=== PATIENT | female | born 1965 | race Caucasian/White ===

== ENCOUNTER 2023-11-14 18:47 | Outpatient (CLI) | payer BC, SELFPAY ==
--- NOTE | 2023-11-14 19:00 | CRLHL7_ITS ---
For Patients: As a result of the Cures Act, medical imaging exams and procedure reports are released immediately into your electronic medical record. You may view this report before your referring provider. If you have questions, please contact your health care provider. BILATERAL SCREENING MAMMOGRAM WITH COMPUTER-AIDED DETECTION AND TOMOSYNTHESIS TECHNIQUE: CC and MLO views were obtained. These mammographic images have been obtained using full-field digital technique. These mammographic images were interpreted with the benefit of computer-aided detection. Breast Tomosynthesis was used in this interpretation. COMPARISON FILM: 08/23/22, 06/29/21, 02/05/19. FINDINGS: There are scattered areas of fibroglandular density IMPRESSION: There is no radiographic evidence for malignancy. ASSESSMENT: BI-RADS Category 1: Negative RECOMMENDATION: Routine screening mammogram in 1 year. A lay language report of this examination will be provided to the patient. Baltazar Bautista M.D. Diagnostic Radiologist [email or web address] Transcribed: 3:42 [email or web address] drew/Dictated by: Baltazar Bautista MD @ 11/15/2023 10:34:00 AM (Electronically Signed)
== END 2023-11-14 18:48 | disposition home or self-care (01) ==
PROVIDERS: PCP Family Medicine; Visit Provider Family Medicine
DX: Z12.31 Encounter for screening mammogram for malignant neoplasm of breast (principal)
CPT/HCPCS: 77063; 77067

== ENCOUNTER 2024-12-10 15:28 | Outpatient (CLI) | payer BC, SELFPAY ==
--- NOTE | 2024-12-10 15:40 | CRLHL7_ITS ---
For Patients: As a result of the Century Cures Act, medical imaging exams and procedure reports are released immediately into your electronic medical record. You may view this report before your referring provider. If you have questions, please contact your health care provider. INDICATION: BILATERAL SCREENING MAMMOGRAM, ASYMPTOMATIC 59 Y/O FEMALE COMPARISON: 11/14/2023, 08/23/2022, 06/29/2021 TECHNIQUE: Digital mammogram in CC and MLO projections including computer-aided detection (CAD) and tomosynthesis. BREAST COMPOSITION: There are scattered areas of fibroglandular density. FINDINGS: No suspicious findings. ASSESSMENT: BI-RADS 1 Negative RECOMMENDATION: Annual screening mammogram. A lay language report of this examination will be provided to the patient. Dictated by: Christin Phelps MD @ 12/11/2024 13:09:25 (Electronically Signed)
== END 2024-12-10 15:29 | disposition home or self-care (01) ==
LOC: MAMMO 15:28
PROVIDERS: PCP Family Medicine; Visit Provider Family Medicine
DX: Z12.31 Encounter for screening mammogram for malignant neoplasm of breast (principal)
CPT/HCPCS: 77063; 77067

== ENCOUNTER 2025-03-09 08:47 | Outpatient (CLI) | payer BC, SELFPAY | END 2025-03-09 08:48 | disposition home or self-care (01) | LOC: AMB 03-12 14:44 | PROVIDERS: PCP Family Medicine; Visit Provider Internal Medicine | DX: S99.911A Unspecified injury of right ankle, initial encounter (principal); W10.9XXA Fall (on) (from) unspecified stairs and steps, initial encounter; Y92.019 Unspecified place in single-family (private) house as the place of occurrence of the external cause | CPT/HCPCS: A0425; A0433 ==

== ENCOUNTER 2025-03-09 09:25 | Emergency (ER) | payer BC, SELFPAY ==
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
[2025-03-09] VITALS (23 sets, daily range): BP systolic 98–128; BP diastolic 57–85; PULSE 67–80; RESP 7–18; TEMP 36.6; O2SAT 87–99; BMI 26.6
--- OUTSIDE RECORDS SUMMARY | 2025-03-09 09:26 | XMS_ITS | Clinical Summary ---
Author Organization [facility] Address [address] [place] [address] Care Team Providers Care Military Cook Name Role Phone Tameka Haskins MD Primary Care Provide r Allergies Active AllergyReactionsCriticalityNoted DateCommentsCodeineNausea Only11/03/2016 Medications MedicationSigDispense QuantityRefillsLast FilledStart DateEnd DateStatus magnesium citrate 125 mg cap Indications:Adjustment reaction with anxiety and depressionTake 400 mg by mouth once daily.ctive cyanocobalamin (Vitamin B-12) 1,000 mcg tablet Take 1 Tablet (1,000 mcg) by mouth once daily. 3 times per week 90 Tablet ctive cholecalciferol (Vitamin D) 1,000 unit capsule Take 1 Capsule (1,000 units) by mouth once daily.ctive clobetasol (TEMOVATE) 0.05 % ointment Indications:Lichen sclerosusApply topically to affected area(s) two times daily. 45 g 309ctive clotrimazole-betamethasone 1%-0.05% cream Indications:IntertrigoApply topically to affected area(s) two times daily. 45 g ctive crisaborole (Eucrisa) 2 % oint Indications:Acute eczemaApply topically to affected area(s) two times daily. 100 g 109ctive hydrocortisone 2.5 % cream Indications:Chronic eczemaApply topically to affected area(s) two times daily. Apply to eczema twice daily for 2-3 weeks 28 g 4Active citalopram (CELEXA) 40 mg tablet Indications:Adjustment reaction with anxiety and depressionTake 1 Tablet (40 mg) by mouth once daily in the morning. 90 Tablet 5Active polyethylene glycol-electrolyte (GOLYTELY) 236-22.74-6.74 -5.86 gram suspension Indications:Encounter for screening colonoscopyDrink 2 liters (half the bottle) the day before colonoscopy and 2 liters (remaining prep) 6 hours prior to colonoscopy appointment. 4000 mL 5Active citalopram 40 mg tablet Indications:Adjustment reaction with anxiety and depressionTake 1 Tablet (40 mg) by mouth once daily in the morning. 90 Tablet Discontinued(Reorder (E-cancel not sent)) Active Problems ProblemNoted DateDiagnosed DatePap smear for cervical cancer xavrvvtzm28/01/2022 Overview (11/12/2021): 08/2021: NIL/HPV neg (16/18 neg). Plan: Pap and HPV in 5 years. 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 Scanner 1 scan: (1-Ord) ZAYDA, HUSSAIN SCREENING MARILYN BI, 12/10/2024from Last 3 Months Immunizations ImmunizationAdministration DatesNext DueAMB INFLUENZA, IIV4 (AGE=>6MOS) MDV (Flu Clinic Only)12/26/2017AMB Influenza, IIV3 (Age >=3 years)(Flu Clinic Only) 02/11/2011,02/12/2010,02/15/2008MB Influenza, IIV4 PF (=>6 mos Flulaval,Fluzone Fluarix)(Flu Clinic Only)02/14/2014COVID-19 VACCINE SPIKEVAX (MODERNA 50MCG/0.5ML) 12YO+ PFS02/14/2025,09/05/2024,02/08/2023INFLUENZA, IIV3 PF (AGE >= 6 MO)02/14/2025,12/22/2023Influenza RIV4 (Age 18+ Years) PRESERV FREE11/07/2019 Influenza Virus, Cnwbdksyzee38/27/2016,02/15/2008,01/05/2007,02/01/2006, 02/26/2003Influenza, IIV3 (Age 6-35 mos)02/11/2011Influenza, IIV3 (Age >=3 years)03/05/2013,02/10/2012,02/12/2010,02/15/2008,01/05/2007,02/01/2006, 02/26/2003Influenza, PKS87104/10/2022,01/07/2021,03/17/2017,01/14/2016,02/14/2014 Influenza, IIV4 (=>6mos) MDV104/16/2021,03/07/2019Td (Age >=7 Years)08/05/2003Td, Preservative Free (age >= 7 Years)10/22/2002Tdap10/04/2022,11/02/2012Zoster (Asagrix-RZV, recombinant)02/21/2020,11/07/2019 Family History Medical HistoryRelationNameCommentsPsychiatric illnessBrother 2AllergiesBrother 3Alcohol/DrugBrother 4Heart DiseaseFatherCHF, age 78CancerMaternal GrandfatherHeart DiseaseMaternal GrandmotherStrokeMaternal GrandmotherGood HealthMotherHeart DiseaseMotherAcute anterior wall MIPsychiatric illnessMother CancerPaternal GrandfatherHeart DiseasePaternal GrandmotherStrokePaternal GrandmotherAllergiesSister 4AllergiesSister 5Good HealthSister 6Good Health Sister 7RelationNameStatusCommentsBrother 1AliveBrother 2Brother 3Brother 4 Daughter 1AliveDaughter 2AliveFatherAliveMaternal AuntAliveMaternal Grandfather AliveMaternal GrandmotherAliveMaternal UncleAliveMotherAlivePaternal Aunt (Age 38)Paternal GrandfatherDeceasedPaternal GrandmotherDeceased Paternal UncleDeceased (Age 22)kidney diseaseSister 1AliveSister 2AliveSister 3 AliveSister 4Sister 5Sister 6Sister 7SonAlive Social History Tobacco UseTypesPacks/DayYears UsedDateSmoking Tobacco: NeverSmokeless Tobacco: Never Tobacco Cessation:Counseling Given: Yes Alcohol UseStandard Drinks/WeekCommentsYes3 (1 standard drink = 0.6 oz pure alcohol)a glass a weekPHQ-2AnswerDate RecordedPHQ-2 TOTAL MJACX47504/16/2024Social ConnectionsAnswerDate RecordedDo you often feel lonely or isolated from those around you?lcohol UseAnswerDate RecordedHow often do you have a drink containing alcohol?How many drinks containing alcohol do you have on a typical day when you are drinking?How often do you have five or more drinks on one occasion?Financial Resource StrainAnswer Date RecordedDifficulty of Paying Living Fasaalxh613/19/2025Difficulty of Paying Living ExpensesNot on file09/05/2024Food InsecurityAnswerDate RecordedDo you worry your food will run out before you are able to buy more? Transportation NeedsAnswerDate RecordedDoes lack of transportation keep you from medical appointments?Does lack of transportation keep you from work, meetings or getting things that you need?Housing StabilityAnswerDate RecordedWhat is your housing situation today?UtilitiesAnswerDate RecordedDo you have trouble paying for utilities (for example, heat, electricity, water, phone)?CommentsNoSex and Gender InformationValueDate RecordedSex Assigned at GjsnvDncuuy38/01/2021 6:34 PM CDT Legal XkiQnmyqa88/14/2013 6:22 AM CSTGender AmdekzrzJzafgn07/01/2021 6:34 PM CDT Sexual TegprrgkjdqXlamvrby08/01/2021 6:34 PM CDT Obstetrics History GravidaParaTermPretermABIABSABEctopicMultipleLivingLive Rgmaho455172LbsrJiveutd GATotal LaborLabor/2nd/8nvPftejaBbcOrvgGzcmFJAHgdA1L8IfjrRinoKCYScaoRxcrQekb Last Filed Vital Signs Vital SignReadingTime TakenCommentsBlood Xolwwahh245/7402/14/2025 10:07 AM [employer]ESPERSON WOMEN'S DRESSES Cyinv774102/14/2025 10:07 AM KSDFarzfvhkxbp57.6 ??C (97.9 ??F)03/03/2020 7:30 AM CSTRespiratory Nghv7762 3:59 PM CDTOxygen Sojtqddens17%02/14/2025 10:07 AM CSTInhaled Oxygen Concentration--Eecdqa44.4 kg (166 lb 4.8 oz)02/14/2025 10:07 AM XDSZnvqqa101.2 cm (5' 7)02/14/2025 10:07 AM CSTBody Mass Index26.05 02/14/2025 10:07 AM [employer]ESPERSON WOMEN'S [employer]ESS[employer] Plan of Treatment DateTypeDepartmentCare Team (Latest Contact Info)Fbslfuzkqef20/22/2025 11:00 AM CSTNurse/Clinic Staff Only [facility] [address] [place] [address] 06/13/2025 6:30 AM CDTOffice Visit [facility] [address] [facility] [place] [phone] Tl Crum MD [address] [place] [address] Health MaintenanceDue DateLast DoneCommentsHepatitis B series for 19+ (1 of 3 - 19+ 3-dose series)07/04/1986Pneumococcal series for age 50+ (1 of 1 - PCV) 07/04/2017Colonoscopy through age 750, 10/10/2017, 10/10/2017 Fecal testing sDNA-FIT (Cologuard) for age 45-7Mammogram for age 45-/, 11/14/2023, 08/23/2022, Additional history existsBMI (ht and wt on same day) for age 18+, 11/28/2023, 09/16/2022, Additional history existsDepression screening for age 12+02/14/2026 02/14/2025, 11/28/2023, 09/16/2022, Additional history existsPap test for age 21-, 09/07/2021, 01/03/2019, Additional history exists Lipids for age 45-7511/, 02/28/2023, 09/07/2021, Additional history existsTetanus , 11/02/2012, 10/22/2002, Additional history existsRSV vaccine for adults or (1 - 1-dose 75+ series)07/04/2042Zoster (shingles) series for age 50+Qnuiyxhtt54/04/2020, 11/07/2019HIV for age 15-39Dlpipxbsm44/21/2022Hepatitis C screening for age 18-69Zlpnkqytq97/21/2022COVID-19 vaccine edecowFyhugklwg22/28/2025, 09/05/2024, 12/22/2023, Additional history existsInfluenza NrtepokHkssmcyqq56/28/2025, 12/22/2023, 02/08/2023, Additional history exists Procedures Procedure NamePriorityDate/TimeAssociated DiagnosisCommentsVITAMIN B14Vfrlgjy 02/14/2025 11:27 AM [employer]ERSON [employer]OMEN[employer] B12 deficiency TSH WITH HHWJXTTrozefs65/28/2025 11:27 AM SALESPERSON WOMEN'S DRESSES Hot flashes LIPID PANEL W REFLEX MEASURED XOFZtoydtd40/28/2025 11:27 AM SALESPERSON WOMEN'S DRESSES Lipid screening SCAN-MAMMOGRAPHY KXXZGV3312/10/2024 12:00 AM CDT SDNA-FIT EXTERNAL (COLOGUARD)Hzfpejk5709/26/2022 5:35 PM CDT Screening for colon cancer ANTI HIV 1/3Ilgglqd35/21/2022 3:12 PM CDT Screen for STD (sexually transmitted disease) ANTI QCNSsmtfja57/21/2022 3:12 PM CDT Screen for STD (sexually transmitted disease) HPV HIGH XCIEMpkmnpq51/21/2022 2:00 PM CDT Cervical cancer screening YIHHTSDAWZJ81/24/2018 8:15 AM CDT from Last 3 Months or Most Recently Relevant to Health Maintenance Results * TSH WITH REFLEX (02/14/2025 11:27 AM SALESPERSON WOMEN'S DRESSES)ComponentValueRef RangeTest Method Analysis TimePerformed AtPathologist SignatureTSH W/REFLEX TO FT41.350.40 - 4.50 mIU/L104/17/2024 4:06 AM CSTQUEST DIAGNOSTICSSpecimen (Source)Anatomical Location / LateralityCollection Method / VolumeCollection TimeReceived Time BloodBLOOD SPECIMEN / UnknownQuest Collect / Wsldxbp8502/14/2025 11:27 AM [employer]ESPERSON WOMEN'S DRESSES 02/14/2025 11:27 AM SALESPERSON WOMEN'S DRESSES Narrative Authorizing ProviderResult TypeResult StatusTameka Paty Chapinhaylee MDCHEMISTRY Final ResultPerforming OrganizationAddressCity/State/ZIP CodePhone Number [facility] [address] [place] [address], * (ABNORMAL) LIPID PANEL W REFLEX MEASURED LDL (02/14/2025 11:27 AM SALESPERSON WOMEN'S DRESSES) ComponentValueRef RangeTest MethodAnalysis TimePerformed AtPathologist SignatureCHOLESTEROL, UGQCA286(H)<200 mg/dL02/15/2025 3:51 AM CSTQUEST XROKIIKLZHRKBITUNBODOVZM518<150 mg/dL02/15/2025 3:51 AM CSTQUEST DIAGNOSTICS HDL MQPWGZIPDUZ97> OR = 50 mg/dL02/15/2025 3:51 AM CSTQUEST DIAGNOSTICSNON HDL IGQQKPFGKJF055(H)<130 mg/dL (calc)02/15/2025 3:51 AM CSTQUEST DIAGNOSTICS Comment: For patients with diabetes plus 1 major ASCVD risk factor, treating to a non-HDL-C goal of <100 mg/dL (LDL-C of <70 mg/dL) is considered a therapeutic option. CHOL/HDLC RATIO4.4<5.0 (calc)02/15/2025 3:51 AM CSTQUEST DIAGNOSTICS LDL-XYNPDLQIWVF229(H)mg/dL (calc)02/15/2025 3:51 AM CSTQUEST DIAGNOSTICSComment: Reference range: <100 Desirable range <100 mg/dL for primary prevention; <70 mg/dL for patients with CHD or diabetic patients with > or = 2 CHD risk factors. LDL-C is now calculated using the Sindi calculation, which is a validated novel method providing better accuracy than the Friedewald equation in the estimation of LDL-C. Tl RICHARDSON et al. GERALD. 2013;310(19): 0966-9650 (http://education.[employer].Locate Special Diet/faq/JQW392) Specimen (Source)Anatomical Location / LateralityCollection Method / Volume Collection TimeReceived TimeBloodBLOOD SPECIMEN / UnknownQuest Collect / Unknown 02/14/2025 11:27 AM CST02/14/2025 11:27 AM SALESPERSON WOMEN'S DRESSES Narrative Authorizing ProviderResult TypeResult StatusTameka Haskins MDCHEMISTRY Final ResultPerforming OrganizationAddressCity/State/ZIP CodePhone Number [employer] [facility] [address] [place] [address], [place] [phone] * VITAMIN B12 (02/14/2025 11:27 AM SALESPERSON WOMEN'S DRESSES)ComponentValueRef RangeTest Method Analysis TimePerformed AtPathologist SignatureVITAMIN [id number] - 1100 pg/mL 02/15/2025 4:03 AM CSTQUEST DIAGNOSTICSSpecimen (Source)Anatomical Location / LateralityCollection Method / VolumeCollection TimeReceived TimeBloodBLOOD SPECIMEN / UnknownQuest Collect / Jftykip2002/14/2025 11:27 AM CST02/14/2025 11:27 AM SALESPERSON WOMEN'S DRESSES Narrative Authorizing ProviderResult TypeResult StatusTameka Haskins MDCHEMISTRY Final ResultPerforming OrganizationAddressCity/State/ZIP CodePhone Number [employer] [address] [address], [place] [phone] * SCAN-MAMMOGRAPHY REPORT (12/10/2024 12:00 AM CDT)Anatomical RegionLaterality ModalityOther Narrative Authorizing ProviderResult TypeResult StatusScannerOTHERFinal Result * SDNA-FIT EXTERNAL (COLOGUARD) (09/26/2022 5:35 PM CDT)ComponentValueRef Range Test MethodAnalysis TimePerformed AtPathologist SignatureNONINV COLON CA DNA+OCC BLD SCRN STL-SKOGojktajbDohpxqjf90/17/2023 4:39 PM CDTEXBoedo (CLIA #:[id number])Comment: NEGATIVE TEST RESULT. A negative Cologuard result indicates a low likelihood that a colorectal cancer (CRC) or advanced adenoma (adenomatous polyps with more advanced pre-malignant features) ??is present. The chance that a person with a negative Cologuard test has a colorectal cancer is less than 1in 1500 (negative predictive value >99.9%) or has an advanced adenoma is less than 5.3% (negative predictive value 94.7%). These data are based on a prospective cross-sectional study of 10,000individuals at average risk for colorectal cancer who were screened with both Cologuard and colonoscopy. (Cyrus Piper al, N Engl J Med 2014;370(14):1922-5124) The normal value (reference range) for this assay is negative. COLOGUARD RE-SCREENING RECOMMENDATION: Periodic colorectal cancer screening is an important part ofpreventive healthcare for asymptomatic individuals at average risk for colorectal cancer. ??Following a negative Cologuard result, the [employer] Society and U.S. Multi-Society Task Force screening guidelines recommend a Cologuard re-screening interval of 3 years. References: [employer] Guideline for Colorectal Cancer Screening: https://www.cancer.or g/cancer/oigxr-upkakn-gwhjcm/hwdeyyajy-sisldrnqa-snhacla/acs-recommendations.htm jason; Montrell MAYBERRY, Kyle LYNNE, Cory GeK, Colorectal Cancer Screening: Recommendations for Physicians and Patients from the U.S. Multi-Society Task Force on Colorectal Cancer Screening , Am J Gastroenterology 2017; 112:9502-3546. TEST DESCRIPTION: Composite algorithmic analysis of stool DNA-biomarkers with hemoglobin immunoassay. ?? Quantitative values of individual biomarkers are not reportable and are not associated with individual biomarker result reference ranges. Cologuard is intended for colorectal cancer screening ofadults of either sex, 45 years or older, who are at average-risk for colorectal cancer (CRC). Cologuard has been approved for use by the U.S. FDA. The performance of Cologuard was established in a cross sectional study of average-risk adults aged 50-84. Cologuard performance in patients ages 45 to 49 years was estimated by sub-group analysis of near-age groups. Colonoscopies performed for a positive result may find as the most clinically significant lesion: colorectal cancer [4.0%], advanced adenoma (including sessile serrated polyps greater than or equal to 1cm diameter) [20%] or non- advanced adenoma [31%]; or no colorectal neoplasia [45%]. These estimates are derived from a prospective cross-sectional screening study of 10,000 individuals at average risk for colorectal cancer who were screened with both Cologuard and colonoscopy. (Cyrus Piper al, N Engl J Med 2014;370(14):0844-9519.) Cologuard may produce a false negative or false positive result (no colorectal cancer or precancerous polyp present at colonoscopy follow up). A negative Cologuard test result does not guarantee the absence of CRC or advanced adenoma (pre-cancer). The current Cologuard screening interval is every 3 years. ([employer] [employer] and U.S. Multi-Society Task Force). Cologuard performance data in a 10,000 patient pivotal study using colonoscopy as the reference method can be accessed at the following location: www.[employer].Locate Special Diet/results. Additional description of the Cologuard test process, warnings and precautions can be found at www.cologuard.Locate Special Diet. Specimen (Source)Anatomical Location / LateralityCollection Method / Volume Collection TimeReceived TimeStool specimen (specimen) (Rectum)09/26/2022 5:35 PM CDT09/28/2022 5:38 PM CDT Narrative Authorizing ProviderResult TypeResult StatusTameka Haskins MDURINEFinal ResultPerforming OrganizationAddressCity/State/ZIP CodePhone Number [employer] (CLIA #:[id number]) [place] [address], * ANTI HCV (09/07/2021 3:12 PM CDT)ComponentValueRef RangeTest MethodAnalysis TimePerformed AtPathologist SignatureHEPATITIS C ANTIBODYNon-Reactive Non-Gsuyqckz04/22/2022 12:56 AM CD[facility] Comment:Antibodies to HCV not detected; does not exclude the possibility of exposure to HCV.Specimen (Source)Anatomical Location / LateralityCollection Method / VolumeCollection TimeReceived TimeBloodBLOOD SPECIMEN / Unknown Venipuncture / Kvsbuns4309/07/2021 3:12 PM CDT09/07/2021 3:12 PM CDT Narrative Authorizing ProviderResult TypeResult StatusTameka Haskins MDSEND OUTS Final ResultPerforming OrganizationAddressCity/State/ZIP CodePhone Number [facility] [address] [place] [address], [place] * ANTI HIV 1/2 (09/07/2021 3:12 PM CDT)ComponentValueRef RangeTest Method Analysis TimePerformed AtPathologist SignatureHIV-1/HIV-2 ANTIBODYNon-Reactive Non-Hcqoxrle98/22/2022 12:54 AM [facility] Comment:HIV-1 p24 and HIV-1/HIV-2 Ab not detected.Specimen (Source)Anatomical Location / LateralityCollection Method / VolumeCollection TimeReceived Time BloodBLOOD SPECIMEN / UnknownVenipuncture / Nakaxxm4209/07/2021 3:12 PM CDT 09/07/2021 3:12 PM CDT Narrative Authorizing ProviderResult TypeResult StatusTameka Haskins MDSEND OUTS Final ResultPerforming OrganizationAddressCity/State/ZIP CodePhone Number [facility] [address] [place] [address], * HPV HIGH RISK (09/07/2021 2:00 PM CDT)ComponentValueRef RangeTest Method Analysis TimePerformed AtPathologist SignatureTYPE 16NegativeNegative 09/09/2021 2:23 PM CD[facility]-CENTRAL LABORATORYTYPE 18 IhaeiaueOhzknfzz48/23/2022 2:23 PM [facility]OTHER HIGH RISK IKHWQKhjiglhqGhegaamw22/23/2022 2:23 PM [facility]ATORYSpecimen (Source)Anatomical Location / LateralityCollection Method / VolumeCollection TimeReceived TimeOther (Cervical)Non-Blood / Cfxspuc4809/07/2021 2:00 PM CDT09/08/2021 8:27 AM CDT Narrative [facility] - 09/09/2021 2:23 PM CDT HPV types 16, 18, 31, 33, 35, 39, 45, 51, 52, 56, 58, 59, 66 and 68 DNA were undetectable or below the pre-set threshold. Methodology: YesVideo Carie 4800 HPV Test Authorizing ProviderResult TypeResult StatusTameka Haskins MD MICROBIOLOGYFinal ResultPerforming OrganizationAddressCity/State/ZIP CodePhone Number [facility] [address] [place] [address], * COLONOSCOPY (10/10/2017 8:15 AM CDT)Specimen (Source)Anatomical Location / LateralityCollection Method / VolumeCollection TimeReceived Time10/10/2017 8:15 AM CDT Narrative Transcriptions Tl Crum MD - 10/10/2017 8:49 AM CDT Patient Name: Lesly Blevins Procedure Date: 10/10/2017 Gender: Female Date of : 1965 Admit Type: Outpatient Procedure: Colonoscopy Proceduralist: Tl Crum MD , Ciera Mina (Nurse) Indications/Pre-Op Diagnosis: Screening for colorectal malignant neoplasm, This is the patient's first colonoscopy Medications: Fentanyl 100 micrograms IV, Midazolam 2 mgIV, The level of sedation administered wasmoderate Procedure Description: The patient had risks, benefits and alternatives explained to andgave informed consent. The patient had a stable cardiopulmonary status and judged an adequate candidate for conscious sedation. The Colon CF-H180AL [id number] was passed through the anus and advancedto the cecum, identified by appendiceal orifice and ileocecal valve. The colonoscopy was performed without difficulty. The patient toleratedthe procedure well. The quality of the bowel preparation was good. The ileocecal valve, appendiceal orifice, and rectum were photographed. Complications: No immediate complications. Estimated Blood Loss & Specimen: Estimated blood loss: none. Specimen collected - Yes and sent to Laboratory Findings: The perianal and digital rectal examinations were normal. Two sessile polyps were found in the transverse colon. The polypswere 2 to 3 mm in size. These polyps were removed with a cold biopsyforceps. Resection and retrieval were complete. The exam was otherwise without abnormality on direct and retroflexion views. Impressions/Post-Op Diagnosis: - Two 2 to 3 mm polyps in the transverse colon, removed with a cold biopsy forceps. Resected and retrieved. - The examination was otherwise normal on direct and retroflexionviews. Recommendation: - Patient has a contact number available for emergencies. The signsand symptoms of potential delayed complications were discussed with the patient. Return to normal activities tomorrow. Written discharge instructions were provided to the patient. - Resume previous diet. - Continue present medications. - Repeat colonoscopy is recommended. The colonoscopy date will be determined after pathology results from today's exam become available for review. Moderate Sedation: Moderate (conscious) sedation was administered by the endoscopy nurse and supervised by the endoscopist. The following parameters were monitored: oxygen saturation, heart rate, respiratory rate, blood pressure, adequacy of pulmonary ventilation and reponse to care. Please refer to the [facility]' medical record flowsheets and nursing notes for moderate sedation details. Total physician intraservice time was 15 minutes. Tl Crum MD 10/10/2017 8:48:59 AM This report has been signed electronically. Note Initiated On: 10/10/2017 8:15 AM Procedure Code(s): --- Professional --- 20737, Colonoscopy, flexible; with biopsy, single or multiple Diagnosis Code(s): --- Professional --- Z12.11, Encounter for screening formalignant neoplasm of colon D12.3, Benign neoplasm of transverse colon (hepatic flexure or splenic flexure) CPT copyright 2017 [employer]. All rights reserved. The codes documented in this report are preliminary and upon tape maker reviewmay be revised to meet current compliance requirements. Scope In: 8:32:09 AM Scope Withdrawal Time 0 hours 8 minutes 35 seconds Scope Out: 8:44:31 AM Authorizing ProviderResult TypeResult StatusMarrobinson Crum MDPROCEDURE ORD Final Result from Last 3 Months or Most Recently Relevant to Health Maintenance Insurance * Guarantor: Lesly Blevins AAccount TypeRelation to PatientDate of BirthPhone Billing AddressPersonal/WmgmskYweq27/17/1966 [address] [place] [address] * Guarantor: Lesly Blevins AAccount TypeRelation to PatientDate of BirthPhone Billing YgqecdgRpvlgeWadz03/17/1966 [address] [place] [place] [phone] Care Teams Team MemberRelationshipSpecialtyStart DateEnd Tameka Haskins MD [address] [place] [address] PCP - GeneralFamily Jithzyjs78/6/14
--- OUTSIDE RECORDS SUMMARY | 2025-03-09 09:26 | XMS_ITS | Encounter Summary ---
Author Organization [facility] Address [address] [place] [address] Care Team Providers Care Learning And Development Consultant Name Role Phone Unavailable Primary Care Provider Unavailabl e Reason for Referral * Outpatient (Routine) - AuthorizedSpecialtyDiagnoses / ProceduresReferred By ContactReferred To ContactPlastic Surgery Isaiah Carlisle M.D., D.D.S. [address] [place] [address] Phone: tel: fax: [facility] Referral IDStatusReasonStart DateExpiration DateVisits RequestedVisits [id number]/18/20256/19/202711 Scheduling Instructions 6-12 week post op [address] Carlisle K JACK DEALER * Outpatient (Routine) - AuthorizedSpecialtyDiagnoses / ProceduresReferred By ContactReferred To ContactPlastic Surgery Isaiah Carlisle M.D., D.D.S. [address] [place] [address] Phone: tel: fax: [facility] Referral IDStatusReasonStart DateExpiration DateVisits RequestedVisits [id number]/18/20256/19/202711 Scheduling Instructions 2 week post op with Margie K JACK DEALER * Outpatient (Routine) - AuthorizedSpecialtyDiagnoses / ProceduresReferred By ContactReferred To ContactPlastic Surgery Isaiah Carlisle M.D., D.D.S. [address] [place] [address] Phone: tel: fax: [facility] Referral IDStatusReasonStart DateExpiration DateVisits RequestedVisits [id number]/18/20256/ Scheduling Instructions 1 week post op with [facility]Jessica K JACK DEALER Encounter Details DateTypeDepartmentCare Team (Latest Contact Info)Tljezbtwnat95/18/2025Orders Only Division of Plastic Surgery in [place], [place] [address] [place] [phone] Isaiah Carlisle M.D., D.D.S. [address] [place] [phone] Social History Tobacco UseTypesPacks/DayYears UsedDateSmoking Tobacco: NeverSmokeless Tobacco: NeverAlcohol UseStandard Drinks/WeekCommentsYes2 (1 standard drink = 0.6 oz pure alcohol)CommentsUnknownSex and Gender InformationValueDate RecordedSex Assigned at YlwixExhnkt51/25/2024 10:14 PM CSTLegal JihJjfdlb42/03/2017 9:09 AM CSTGender VwcudknsKzllqy71/25/2024 10:14 PM CSTSexual OrientationStraight 02/12/2024 10:14 PM CSTdocumented as of this encounter Plan of Treatment DateTypeDepartmentCare Team (Latest Contact Info)Rceieoyqmoj27/29/2025 7:22 AM CSTHospital Encounter Post Anesthesia Care Unit in [place], [place] [address] [place] [phone] Isaiah Carlisle M.D., D.D.S. [address] [place] [phone] 03/17/2025 7:22 AM BLACK JACK DEALER - 03/17/2025 12:05 PM CSTSurgery [facility] OR [address] [place] [phone] Isaiah Carlisle M.D., D.D.S. [address] [place] [phone] BROWLIFT gliding nqorphxq61/06/2026 2:30 PM CSTOffice Visit Division of Plastic Surgery in [place], [place] [address] [place] [phone] Jessica Espino APRN, C.N.P., D.N.P. [address] [place] [phone] 03/31/2025 2:00 PM CSTOffice Visit Division of Plastic Surgery in [place], [place] [address] [place] [phone] Jessica Espino APRN, C.N.P., D.N.P. [address] [place] [phone] NamePriorityAssociated DiagnosesDate/TimeBROWLIFT Defect Visual Field Peripheral Bilateral 03/17/2025 7:22 AM CSTBLEPHAROPLASTY LOWER LID Defect Visual Field Peripheral Bilateral 03/17/2025 7:22 AM CSTINJECTION FAT Defect Visual Field Peripheral Bilateral 03/17/2025 7:22 AM CSTNameTypePriorityAssociated DiagnosesOrder SchedulePlastic Surgery office visit (clinic)Outpatient ReferralRoutineExpected: 03/24/2025, Expires: 06/04/2026Plastic Surgery office visit (clinic)Outpatient Referral RoutineExpected: 03/31/2025, Expires: 06/04/2026Plastic Surgery office visit (clinic)Outpatient ReferralRoutineExpected: 05/12/2025 (Approximate), Expires: 06/04/2026documented as of this encounter Goals GoalPatient Goal TypeAssociated ProblemsRecent ProgressPatient-Stated?Author Autogenerated Goal Care PlanAutogenerated ProblemAnnette Cooper RWilmerNWilmerdocumented as of this encounter Visit Diagnoses Not on filedocumented in this encounter Additional Health Concerns Active ProblemsNoted DateDiagnosed DateAutogenerated Agvwsfj8303/06/2025documented as of this encounter
--- OUTSIDE RECORDS SUMMARY | 2025-03-09 09:26 | XMS_ITS | Patient Health Record ---
Author Organization [facility] Address [address] [facility] [address] [place], [place] [address] Care Team Providers Care Printed Circuit Photographer Name Role Phone Karina Rico Primary Care Provider [phone] Reason For Referral No Information Plan Of Treatment No Information Insurance Providers Payer Name Payer Address Payer Phone Subscriber Number Group Number Insured Name Patient Relationship to Insured Coverage Start Date Coverage End Date [facility] POS [address] [place] [address] [id number] Lesly Blevins Self - patient is the insured
--- OUTSIDE RECORDS SUMMARY | 2025-03-09 09:26 | XMS_ITS | Clinical Summary ---
Author Organization [facility] Address [address] [place] [address] Care Team Providers Care Tube Blower Name Role Phone Unavailable Primary Care Provider Unavailabl e Source Comments Patient records contain information from all sites at [facility]. For routine questions regarding patient records, call [phone] during business hours, M-F 8:00 AM - 5:00 PM Central Time. Record requests for emergency care only can be directed to [phone] at any time.[facility] Allergies Active AllergyReactionsCriticalityNoted DateCommentsCodeineNausea Only11/03/2016 Medications MedicationSigDispense QuantityRefillsLast FilledStart DateEnd DateStatus cholecalciferol (Vitamin D3) 25 mcg (1,000 Unit) capsule Take 1 capsule by mouth daily.09/16/2022ctive citalopram (CeleXA) 20 mg tablet Take 1 tablet by mouth daily.11/28/2023ctive clobetasoL (Temovate) 0.05 % ointment Apply topically 2 (two) times a day.11/28/2023ctive clotrimazole-betamethasone (Lotrisone) 1-0.05 % cream Apply topically 2 (two) times a day.11/28/2023ctive crisaborole (Eucrisa) 2 % ointment Apply topically 2 (two) times a day.11/28/2023ctive cyanocobalamin (Vitamin B-12) 1,000 mcg tablet Take 1,000 mcg by mouth.09/16/2022ctive hydrocortisone (Hytone) 2.5 % cream Apply topically.4Active magnesium citrate 125 mg capsule Take 400 mg by mouth daily.3Active Active Problems ProblemNoted DateDiagnosed DateDefect Visual Field Peripheral Bilateral 01/09/2025 Encounters DateTypeDepartmentCare ZveuYepzdomnyyw97/18/2025Orders Only Division of Plastic Surgery in [place], [place] [address] [place] [address] Isaiah Carlisle M.D., D.D.S. 01/09/2025ncillary Procedure Department of Plastic and Reconstructive Surgery 01/08/2025 3:00 PM CDTComprehensive Visit [facility] in [place], [place] [address] [place] [address] Isaiah Carlisle M.D., D.D.S. Defect Visual Field Peripheral Bilateral (Primary Dx)12/20/2024 3:00 PM CDT Ancillary Procedure Department of Ophthalmology in [place], [place] [address] [place] [address] Isaiah Carlisle M.D., D.D.S. Ptosis Smuvvi9812/20/2024ncillary Procedure Department of Ophthalmology from Last 3 Months Immunizations ImmunizationAdministration DatesNext DueInfluenza, Pdxrtymzvfp15/28/2008, 01/05/2007,02/01/2006,02/26/2003Td (Adult), nycieaqb80/05/2003influenza vaccine quad (FLUZONE/FLUARIX) (6 months and older)(PF)01/14/2016 Family History Medical HistoryRelationNameCommentsAnxiety disorderBrotherDwight HandAnxiety disorderDaughter 1Sophia NevinDepressionDaughter 1Sophia NevinSuicide attempts Daughter 1Sophia NevinAnxiety disorderDaughter 2Natalie NevinAnxiety disorder FatherRoger HandCoronary artery diseaseFatherRoger HandDementiaFatherRoger Hand DepressionFatherRoger HandRheumatoid arthritis (RA)FatherRoger HandSleep apnea FatherRoger HandCoronary artery diseaseMaternal GrandmotherBernice Yo Anxiety disorderMotherDarlene HandCoronary artery diseaseMotherDarlene Hand DementiaMotherDarlene HandDepressionMotherDarlene HandSleep apneaMotherDarlene HandColon cancerPaternal GrandfatherFrank HandAnxiety disorderSister 1Shari Hand DepressionSister 1Shari HandAnxiety disorderSister 2Kim HandAnxiety disorder Sister 3Tami HandADD / ADHDSonMiles NevinAnxiety disorderSonMiles NevinLearning disabilitiesSonMiles NevinRelationNameStatusCommentsBrotherDwight HandAlive Daughter 1Sophia NevinAliveDaughter 2Natalie NevinAliveFatherRoger HandAlive Maternal GrandmotherBernice MessnerAliveMotherDarlene HandAlivePaternal GrandfatherFrank HandAliveSister 1Shari HandAliveSister 2Kim HandAliveSister 3 Addie HandAliveSonMiles NevinAlive Social History Tobacco UseTypesPacks/DayYears UsedDateSmoking Tobacco: NeverSmokeless Tobacco: Never Tobacco Cessation:Counseling Given: Not Answered Alcohol UseStandard Drinks/WeekCommentsYes2 (1 standard drink = 0.6 oz pure alcohol)CommentsUnknownSex and Gender InformationValueDate RecordedSex Assigned at ThyssQszdio42/25/2024 10:14 PM CSTLegal MboYdlixi92/03/2017 9:09 AM CSTGender HedugdzcTybzel25/25/2024 10:14 PM CSTSexual OrientationStraight 02/12/2024 10:14 PM MANAGER CARDIOLOGY Last Filed Vital Signs Vital SignReadingTime TakenCommentsBlood Zzfsgzmf184/7711 9:10 AM MANAGER CARDIOLOGY Urjmu229002/14/2024 9:10 AM CSTTemperature--Respiratory Rate--Oxygen Saturation-- Inhaled Oxygen Concentration--Cpnwqu06.3 kg (181 lb 7 oz)04/30/2024 3:12 PM MANAGER CARDIOLOGY Tdalvi817.1 cm (5' 6.97)04/30/2024 3:12 PM CSTBody Mass Index28.44004/30/2024 3:12 PM MANAGER CARDIOLOGY Plan of Treatment DateTypeDepartmentCare Team (Latest Contact Info)Dlviihuwfwu81/29/2025 7:22 AM CSTHospital Encounter Post Anesthesia Care Unit in [address] [place] [address] Isaiah Carlisle M.D., D.D.S. [address] [place] [phone] 03/17/2025 7:22 AM MANAGER CARDIOLOGY - 03/17/2025 12:05 PM CSTSurgery [facility]IN OR [address] [place] [phone] Isaiah Carlisle M.D., D.D.S. [address] [place] [phone] BROWLIFT gliding eewcbmhg72/06/2026 2:30 PM CSTOffice Visit Division of Plastic Surgery in [place], [place] [address] [place] [phone] Jessica Espino APRN, C.N.P., D.N.P. [address] [place] [phone] 03/31/2025 2:00 PM CSTOffice Visit Division of Plastic Surgery in [place], [place] [address] [place] [phone] Jessica Espino APRN, C.N.P., D.N.P. [address] [place] [phone] NamePriorityAssociated DiagnosesDate/TimeBROWLIFT Defect Visual Field Peripheral Bilateral 03/17/2025 7:22 AM CSTBLEPHAROPLASTY LOWER LID Defect Visual Field Peripheral Bilateral 03/17/2025 7:22 AM CSTINJECTION FAT Defect Visual Field Peripheral Bilateral 03/17/2025 7:22 AM CSTHealth MaintenanceDue DateLast DoneCommentsCT Colonography 1967Cervical/Vaginal Cancer Coiuuqrum88/17/1968Hepatitis C Screening 1965 2810Ufcbrautk90/17/1968Hepatitis B Vaccines (1 of 3 - 19+ 3-dose series) 07/04/1986Pneumococcal vaccine (50+ years) (1 of 1 - PCV)07/04/2017Colonoscopy Fasting Glucose for Diabetes Mjtrzztdv77/, 03/03/2020Depression Screening (Annual PHQ-2)7377Vircihnde02/10/2026 09/26/2022olorectal Cancer Dcalquswufqh52/10/2026Lipid (Cholesterol) Screening , 09/07/2021, 01/03/2019, Additional history exists DTaP,Tdap,and Td Vaccines (3 - Td or Tdap), 11/02/2012, 10/22/2002Zoster UwvmpujvQjbrtnaou16/04/2020, 11/07/2019COVID-19 Vaccine Uvwaidccl69/28/2025, 09/05/2024, 12/22/2023, Additional history existsInfluenza KalmwxwXagkaqsyp75/28/2025, 12/22/2023, 02/08/2023, Additional history existsIPV VaccinesAged OutNo longer eligible based on patient's age to complete this topic Goals GoalPatient Goal TypeAssociated ProblemsRecent ProgressPatient-Stated?Author Autogenerated Goal Care PlanAutogenerated ProblemNoKiAnnette driscoll T, R.N. Procedures Procedure NamePriorityDate/TimeAssociated DiagnosisCommentsPLASTIC AND RECON SURGERY IMAGE YGVIWffiqxu09/23/2025 12:00 AM CDT AUTOMATED VF - LIMITED - OU - BOTH OALLHpuksio58/03/2025 2:46 PM CDT Ptosis Eyelid OPHTHALMOLOGY IMAGE GEOUGkbvqda52/03/2025 12:00 AM CDT from Last 3 Months Results * Face and Eyes-Plastic And Recon Surgery Image Exam (01/09/2025 12:00 AM CDT) Specimen (Source)Anatomical Location / LateralityCollection Method / Volume Collection TimeReceived Time Narrative [facility] - 01/09/2025 9:28 AM CDT This order has been created and auto-finalized to support the import of images acquired without order. The clinical documentation to support these images can be found on the encounter that produced images. Authorizing ProviderResult TypeResult StatusProvider Not In SystemIMG NON RAD IMAGING PROCEDURESFinal ResultPerforming OrganizationAddressCity/State/ZIP Code Phone Number [facility] NA * Automated VF - Limited - OU - Both Eyes (12/20/2024 2:46 PM CDT)Specimen (Source)Anatomical Location / LateralityCollection Method / VolumeCollection TimeReceived Time Narrative OPHTHALMOLOGY IMAGING EXAM - 12/20/2024 4:03 PM CDT Ptosis Manual ptosis ??visual field done on Goldmann machine. Right eye: improvement in superior visual field by approx >20 degrees taped versus untaped Left eye: improvement in superior visual field by approx >20 degrees taped versus untaped Authorizing ProviderResult TypeResult StatusBasel Liza Carlisle M.D., Ngoc.S.OPHTH VISUAL FIELDFinal ResultPerforming OrganizationAddressCity/State/ZIP CodePhone Number OPHTHALMOLOGY IMAGING EXAM * Eye Visual Field Ptosis-Ophthalmology Image Exam (12/20/2024 12:00 AM CDT) Specimen (Source)Anatomical Location / LateralityCollection Method / Volume Collection TimeReceived Time Narrative [facility] - 12/20/2024 3:05 PM CDT This order has been created and auto-finalized to support the import of images acquired without order. The clinical documentation to support these images can be found on the encounter that produced images. Authorizing ProviderResult TypeResult StatusProvider Not In SystemIMG NON RAD IMAGING PROCEDURESFinal ResultPerforming OrganizationAddressCity/State/ZIP Code Phone Number [facility] NA from Last 3 Months Additional Health Concerns Active ProblemsNoted DateDiagnosed DateAutogenerated Fivzepl9503/06/2025 Insurance * Guarantor: Lesly BlevinsAccount TypeRelation to PatientDate of BirthPhone Billing AddressPersonal/OmhseoBmxg[birth year][address] [place] [address]
--- NOTE | 2025-03-09 09:46 | CRLHL7_ITS ---
For Patients: As a result of the Century Cures Act, medical imaging exams and procedure reports are released immediately into your electronic medical record. You may view this report before your referring provider. If you have questions, please contact your health care provider. INDICATION: Injury. TECHNIQUE: Left ankle 3 views. FINDINGS: There is gross disruption of the ankle mortise with the dislocation of the talus relative to the distal end of the tibia. There is an oblique fracture of the distal fibular meta diaphysis with posterior displacement of the fracture fragment almost 1 full shaft diameter. There is also a fracture through the medial malleolus with approximately 1 cm of separation of the fracture fragments. There is diastasis of the distal tibial fibular articulation. The posterior malleolus appears intact. There is mild spurring of the posterior and plantar aspects of the calcaneus. IMPRESSION: Bimalleolar fracture dislocation with a diastasis of the distal tibial fibular joint. Dictated by Dario Cardona MD @ 03/09/2025 10:13:30 AM (Electronically Signed)
--- NOTE | 2025-03-09 10:17 | ED.LOWEXIN ---
HPI - Extremity Injury (Lower) General Chief Complaint: Extremity Pain/Injury, Lower <Rashad Swanson MD - Last Filed: 03/09/25 12:28> Stated Complaint: Ankle injury <Rashad Swanson MD - Last Filed: 03/09/25 12:28> Time Seen by Provider: 03/09/25 09:37 <Rashad Swanson MD - Last Filed: 03/09/25 12:28> History of Present Illness HPI Narrative: Patient is a 59-year-old woman who stumbled walking down steps today. She twisted her right ankle. She did not hit her head or lose consciousness. Her only injury is that of her her left ankle. She has not obviously displaced ankle and x-ray shows a by malleolar fracture and dislocation with diastasis of the distal tibial and fibular joint. Patient last ate approximately 2 hours ago. The injury occurred just prior to arrival and her pain would she has 09/26 is located exclusively in the left ankle. <Rashad Swanson MD - Last Filed: 03/09/25 12:28> Related Data Home Medications: Home Medications ?Medication ?Instructions ?Recorded ?Confirmed citalopram 40 mg tablet 40 mg PO QAM 03/09/25 03/09/25 Previous Rx's ?Medication ?Instructions ?Recorded oxycodone-acetaminophen 5 mg-325 1 tab PO Q6H PRN pain #30 tabs 03/09/25 mg tablet (Percocet) <Rashad Swanson MD - Last Filed: 03/09/25 12:28> Allergies/Adverse Reactions: Allergies Allergy/AdvReac Type Severity Reaction Status Date / Time codeine Allergy Unknown Verified 03/09/25 09:33 Opioids - Morphine Analogues AdvReac Intermediate Vomiting Verified 03/09/25 09:33 <Rashad Swanson MD - Last Filed: 03/09/25 12:28> Review of Systems Status of ROS: Reports: 10 or more systems reviewed and unremarkable except as noted in History and below <Rashad Swanson MD - Last Filed: 03/09/25 12:28> PFSH PFSH Social History: Social History Smoking Status: Never smoker Do you use any of these nicotine containing products: None Second hand tobacco smoke exposure: No How often do you have a drink containing alcohol: 2-4 times a month How many standard drinks containing alcohol do you have on a typical day: 1 or 2 How often do you have six or more drinks on one occasion: Never AUDIT-C Alcohol total score: 2 Non-prescribed substance use: denies use <Rashad Swanson MD - Last Filed: 03/09/25 12:28> Exam Narrative: Exam Narrative: EXAM GENERAL: Patient appears comfortable and well. EYES: No scleral icterus. ENT: Tympanic membranes and oropharynx normal. THYROID: no thyroid nodules or thyromegaly. LYMPH: No supraclavicular or cervical lymphadenopathy. SKIN: Visible skin seen during exam normal or with benign process only. EXT: Obviously twisted and displaced right ankle. HEART: Regular rate and rhythm with no murmurs, rubs, or gallops. LUNGS: Clear to auscultation bilaterally with no crackles or wheezes. ABD: Soft, non tender, non distended. PSYCH: Good eye contact, speech is not pressured. <Rashad Swanson MD - Last Filed: 03/09/25 12:28> Const: Vital Signs, click to edit/add: Vital Signs - 24 hr 03/09/25 09:33 03/09/25 09:40 03/09/25 10:00 Temperature 97.8 F Pulse Rate 74 73 Pulse Rate [Pulse Oximeter] 73 Respiratory Rate 18 Blood Pressure Blood Pressure [Ri ght Upper Arm] 100/76 Pulse Oximetry 97 94 96 Oxygen Delivery Me thod Room Air 03/09/25 10:02 03/09/25 10:30 03/09/25 10:31 Temperature Pulse Rate 74 78 77 Pulse Rate [Pulse Oximeter] Respiratory Rate Blood Pressure 126/82 98/57 L Blood Pressure [Ri ght Upper Arm] Pulse Oximetry 92 94 98 Oxygen Delivery Me thod 03/09/25 11:00 03/09/25 11:01 03/09/25 11:02 Temperature Pulse Rate 74 72 73 Pulse Rate [Pulse Oximeter] Respiratory Rate 10 L 9 L 17 Blood Pressure 115/71 Blood Pressure [Ri ght Upper Arm] Pulse Oximetry 98 99 99 Oxygen Delivery Me thod 03/09/25 11:14 03/09/25 11:17 03/09/25 11:22 Temperature Pulse Rate 73 75 71 Pulse Rate [Pulse Oximeter] Respiratory Rate 12 10 L Blood Pressure 128/80 127/77 110/79 Blood Pressure [Ri ght Upper Arm] Pulse Oximetry 96 99 87 L Oxygen Delivery Me thod 03/09/25 11:26 03/09/25 11:30 03/09/25 11:31 Temperature Pulse Rate 67 72 72 Pulse Rate [Pulse Oximeter] Respiratory Rate 8 L 11 L 7 L Blood Pressure 119/72 120/71 Blood Pressure [Ri ght Upper Arm] Pulse Oximetry 99 98 97 Oxygen Delivery Me thod 03/09/25 11:36 03/09/25 11:41 03/09/25 11:42 Temperature Pulse Rate 75 75 76 Pulse Rate [Pulse Oximeter] Respiratory Rate 14 14 13 Blood Pressure 117/75 123/72 Blood Pressure [Ri ght Upper Arm] Pulse Oximetry 96 96 96 Oxygen Delivery Me thod 03/09/25 11:47 03/09/25 11:51 03/09/25 11:56 Temperature Pulse Rate 80 79 74 Pulse Rate [Pulse Oximeter] Respiratory Rate 14 Blood Pressure 124/79 127/85 118/70 Blood Pressure [Ri ght Upper Arm] Pulse Oximetry 98 96 96 Oxygen Delivery Me thod 03/09/25 12:00 03/09/25 12:01 Temperature Pulse Rate 74 74 Pulse Rate [Pulse Oximeter] Respiratory Rate 13 16 Blood Pressure 121/72 Blood Pressure [Ri ght Upper Arm] Pulse Oximetry 97 96 Oxygen Delivery Me thod <Rashad Swanson MD - Last Filed: 03/09/25 12:28> Vital Signs, click to edit/add: Vital Signs - 24 hr 03/09/25 09:33 03/09/25 09:40 03/09/25 10:00 Temperature 97.8 F Pulse Rate 74 73 Pulse Rate [Pulse Oximeter] 73 Respiratory Rate 18 Blood Pressure Blood Pressure [Ri ght Upper Arm] 100/76 Pulse Oximetry 97 94 96 Oxygen Delivery Me thod Room Air 03/09/25 10:02 03/09/25 10:30 03/09/25 10:31 Temperature Pulse Rate 74 78 77 Pulse Rate [Pulse Oximeter] Respiratory Rate Blood Pressure 126/82 98/57 L Blood Pressure [Ri ght Upper Arm] Pulse Oximetry 92 94 98 Oxygen Delivery Me thod 03/09/25 11:00 03/09/25 11:01 03/09/25 11:02 Temperature Pulse Rate 74 72 73 Pulse Rate [Pulse Oximeter] Respiratory Rate 10 L 9 L 17 Blood Pressure 115/71 Blood Pressure [Ri ght Upper Arm] Pulse Oximetry 98 99 99 Oxygen Delivery Me thod 03/09/25 11:14 03/09/25 11:17 03/09/25 11:22 Temperature Pulse Rate 73 75 71 Pulse Rate [Pulse Oximeter] Respiratory Rate 12 10 L Blood Pressure 128/80 127/77 110/79 Blood Pressure [Ri ght Upper Arm] Pulse Oximetry 96 99 87 L Oxygen Delivery Me thod 03/09/25 11:26 03/09/25 11:30 03/09/25 11:31 Temperature Pulse Rate 67 72 72 Pulse Rate [Pulse Oximeter] Respiratory Rate 8 L 11 L 7 L Blood Pressure 119/72 120/71 Blood Pressure [Ri ght Upper Arm] Pulse Oximetry 99 98 97 Oxygen Delivery Me thod 03/09/25 11:36 03/09/25 11:41 03/09/25 11:42 Temperature Pulse Rate 75 75 76 Pulse Rate [Pulse Oximeter] Respiratory Rate 14 14 13 Blood Pressure 117/75 123/72 Blood Pressure [Ri ght Upper Arm] Pulse Oximetry 96 96 96 Oxygen Delivery Me thod 03/09/25 11:47 03/09/25 11:51 03/09/25 11:56 Temperature Pulse Rate 80 79 74 Pulse Rate [Pulse Oximeter] Respiratory Rate 14 Blood Pressure 124/79 127/85 118/70 Blood Pressure [Ri ght Upper Arm] Pulse Oximetry 98 96 96 Oxygen Delivery Me thod 03/09/25 12:00 03/09/25 12:01 Temperature Pulse Rate 74 74 Pulse Rate [Pulse Oximeter] Respiratory Rate 13 16 Blood Pressure 121/72 Blood Pressure [Ri ght Upper Arm] Pulse Oximetry 97 96 Oxygen Delivery Me thod <Gemma Uribe MD - Last Filed: 03/09/25 12:55> Course Course ED Course: Patient seen and examined. Orthopedic consultation obtained. <Rashad Swanson MD - Last Filed: 03/09/25 12:28> Reevaluation(s) Reevaluation #1: As asked to provide sedation for reduction of ankle fracture dislocation. Patient notes history of nausea with morphine, no other problems with sedation previously. Questions answered, consent signed. She was maintained on oximetry, cardiovascular and end-tidal CO2 monitoring. Respiratory therapy was present as well. Patient received initially 50 mg of propofol IV, with continued discomfort during procedure, received an additional total of 40 mg with final dosing of 90 mg of propofol. She did have some hypoxia which responded to bag valve mask per RT. Otherwise tolerated sedation well, waking without difficulty. <Gemma Uribe MD - Last Filed: 03/09/25 12:55> Vital Signs Vital signs: Initial Vital Signs Temperature 97.8 F 03/09/25 09:33 Temperature Source Temporal Artery Scan 03/09/25 09:33 Pulse Rate 73 03/09/25 09:33 Respiratory Rate 18 03/09/25 09:33 Blood Pressure 100/76 03/09/25 09:33 Blood Pressure Mean 84 03/09/25 09:33 Blood Pressure Position Semi-Fowlers 03/09/25 09:33 Pulse Oximetry 97 03/09/25 09:33 Oxygen Delivery Method Room Air 03/09/25 09:33 Vital Signs Temperature 97.8 F 03/09/25 09:33 Pulse Rate 73 03/09/25 09:33 Respiratory Rate 18 03/09/25 09:33 Blood Pressure 100/76 03/09/25 09:33 Pulse Oximetry 97 03/09/25 09:33 Oxygen Delivery Method Room Air 03/09/25 09:33 Temperature 97.8 F 03/09/25 09:33 Pulse Rate 74 03/09/25 12:01 Respiratory Rate 16 03/09/25 12:01 Blood Pressure 121/72 03/09/25 12:01 Pulse Oximetry 96 03/09/25 12:01 Oxygen Delivery Method Room Air 03/09/25 09:33 <Rashad Swanson MD - Last Filed: 03/09/25 12:28> Initial Vital Signs Temperature 97.8 F 03/09/25 09:33 Temperature Source Temporal Artery Scan 03/09/25 09:33 Pulse Rate 73 03/09/25 09:33 Respiratory Rate 18 03/09/25 09:33 Blood Pressure 100/76 03/09/25 09:33 Blood Pressure Mean 84 03/09/25 09:33 Blood Pressure Position Semi-Fowlers 03/09/25 09:33 Pulse Oximetry 97 03/09/25 09:33 Oxygen Delivery Method Room Air 03/09/25 09:33 Vital Signs Temperature 97.8 F 03/09/25 09:33 Pulse Rate 73 03/09/25 09:33 Respiratory Rate 18 03/09/25 09:33 Blood Pressure 100/76 03/09/25 09:33 Pulse Oximetry 97 03/09/25 09:33 Oxygen Delivery Method Room Air 03/09/25 09:33 Temperature 97.8 F 03/09/25 09:33 Pulse Rate 74 03/09/25 12:01 Respiratory Rate 16 03/09/25 12:01 Blood Pressure 121/72 03/09/25 12:01 Pulse Oximetry 96 03/09/25 12:01 Oxygen Delivery Method Room Air 03/09/25 09:33 <Gemma Uribe MD - Last Filed: 03/09/25 12:55> Medications Administered Medications: Discontinued Medications Generic Name Dose Route Start Last Admin Trade Name Freq PRN Reason Stop Dose Admin Hydromorphone HCl 0.5 mg 03/09/25 09:46 03/09/25 09:52 Hydromorphone 0.5 Mg/0.5 Ml Inj IVP 03/09/25 09:47 0.5 mg ONCE ONE Administration Hydromorphone HCl 1 mg 03/09/25 10:45 03/09/25 10:50 Hydromorphone 0.5 Mg/0.5 Ml Inj IVP 03/09/25 10:46 1 mg ONCE ONE Administration Propofol 200 mg 03/09/25 11:04 03/09/25 11:19 Propofol 10 Mg/Ml Inj IVP 03/09/25 11:05 90 mg ONCE ONE Administration <Rashad Swanson MD - Last Filed: 03/09/25 12:28> Discontinued Medications Generic Name Dose Route Start Last Admin Trade Name Freq PRN Reason Stop Dose Admin Hydromorphone HCl 0.5 mg 03/09/25 09:46 03/09/25 09:52 Hydromorphone 0.5 Mg/0.5 Ml Inj IVP 03/09/25 09:47 0.5 mg ONCE ONE Administration Hydromorphone HCl 1 mg 03/09/25 10:45 03/09/25 10:50 Hydromorphone 0.5 Mg/0.5 Ml Inj IVP 03/09/25 10:46 1 mg ONCE ONE Administration Propofol 200 mg 03/09/25 11:04 03/09/25 11:19 Propofol 10 Mg/Ml Inj IVP 03/09/25 11:05 90 mg ONCE ONE Administration <Gemma Uribe MD - Last Filed: 03/09/25 12:55> MDM - Extremity Injury (Lower) MDM Narrative Medical decision making narrative: Patient presents with complex ankle fracture on the right. Under sedation with propofol fall we did successfully reduce the dislocated ankle with anterior and inferior traction. I did place the patient in a stirrup as well as posterior ankle splint. She is encouraged to follow nonweightbearing. I did discharged home with Percocet as well as recommended leg elevation nonweightbearing and follow-up with orthopedics this coming week. She will ice as well. <Rashad Swanson MD - Last Filed: 03/09/25 12:28> Discharge Plan Discharge Clinical Impression: Ankle fracture <Rashad Swanson MD - Last Filed: 03/09/25 12:28> Patient Disposition: Home, Self-Care <Rashad Swanson MD - Last Filed: 03/09/25 12:28> Condition: Stable <Rashad Swanson MD - Last Filed: 03/09/25 12:28> Instructions: Ankle Fracture (ED) <Rashad Swanson MD - Last Filed: 03/09/25 12:28> Additional Instructions: Nonweightbearing Ice Percocet as needed for pain Follow-up with orthopedics this coming week Wear splint as placed. <Rashad Swanson MD - Last Filed: 03/09/25 12:28> Activity Level: Other <Rashad Swanson MD - Last Filed: 03/09/25 12:28> Other <Gemma Uribe MD - Last Filed: 03/09/25 12:55> Discharge Diet: Regular <Rashad Swanson MD - Last Filed: 03/09/25 12:28> Regular <Gemma Uribe MD - Last Filed: 03/09/25 12:55> Prescriptions: New oxycodone-acetaminophen [Percocet] 5-325 mg tablet 1 tab PO Q6H PRN (Reason: pain) Qty: 30 0RF No Action citalopram 40 mg tablet 40 mg PO QAM <Rashad Swanson MD - Last Filed: 03/09/25 12:28> Follow Up/Referrals: Tameka Haskins MD [Primary Care Provider, Family Practice] <Rashad Swanson MD - Last Filed: 03/09/25 12:28> Stand Alone Forms: My[facility] Info Instructions <Rashad Swanson MD - Last Filed: 03/09/25 12:28>
[2025-03-09] MEDS: PROPOFOL 10 MG/ML INJ 200 MG IVP (11:19)
--- NOTE | 2025-03-09 11:24 | CRLHL7_ITS ---
For Patients: As a result of the Century Cures Act, medical imaging exams and procedure reports are released immediately into your electronic medical record. You may view this report before your referring provider. If you have questions, please contact your health care provider. INDICATION: Postreduction. COMPARISON: 03/09/2025 FINDINGS: The limb now lies within a fiberglass splint. The distal end of the tibia is now articulating almost normally with the talar dome. There is mild widening of the medial aspect of the ankle mortise. There is an oblique fracture of the distal fibular meta diaphysis and a transverse fracture of the medial malleolus. Diastasis of the distal tibial fibular joint has been reduced. There is an essentially nondisplaced posterior malleolar fracture fragment that was not apparent on the prior radiographs. IMPRESSION: Successfully reduced trimalleolar fracture dislocation with very close to anatomic alignment. Dictated by Dario Cardona MD @ 03/09/2025 12:09:34 PM (Electronically Signed)
--- NOTE | 2025-03-09 12:04 | RESP.RT ---
Conscience sedation for, x-ray shows a by malleolar fracture and dislocation with diastasis of the distal tibial and fibular joint. Placed on NC 2 Lpm SaO2 98%, with EtCO2 in line 38-41 torr, RR 20/minute, BBS clear, present, equal, good air movement. Propofol given for pain and relax of muscle to reset ankle. Bag and Mask ventilation with self inflation bag with Oxygen bleed in, for 5 minute minutes. Patient awaken, VSS during procedure.
== END 2025-03-09 12:58 | disposition home or self-care (01) ==
PROVIDERS: Emergency Provider Internal Medicine; PCP Family Medicine
DX: S82.851A Displaced trimalleolar fracture of right lower leg, initial encounter for closed fracture (principal); R09.02 Hypoxemia; W10.9XXA Fall (on) (from) unspecified stairs and steps, initial encounter; Y93.01 Activity, walking, marching and hiking
CPT/HCPCS: 27762; 73610; 96374; 96376; 99283; 99285; J1171; J2704

== ENCOUNTER 2025-03-14 06:44 | Day surgery (SDC) | payer BC, SELFPAY ==
[2025-03-14] VITALS (18 sets, daily range): BP systolic 103–135; BP diastolic 55–85; PULSE 63–79; RESP 14–16; TEMP 36.4–36.9; O2SAT 80–99; BMI 26.8
[2025-03-14] MEDS: LACTATED RINGERS 1000 ML 1,000 ML 100 ML IV (07:30)
[2025-03-14] MEDS: SODIUM CHLORIDE 0.9 % (FLUSH) 10 ML SYRINGE IVF (07:30)
--- NOTE | 2025-03-14 07:48 | SUR.PREOP ---
TIME?OUT:?0800 PT/RN/TAX DIRECTOR?VERIFICATION?OF?SURGICAL?SITE,?PROCEDURE,?AND?CONSENT OBTAINED?PRIOR?TO?INVASIVE?PROCEDURE.
--- NOTE | 2025-03-14 08:01 | P.ORPRC_ITS ---
Procedure Note Date of procedure: 03/14/25 Procedure: PREOPERATIVE DIAGNOSES: 1. Right trimalleolar ankle fracture, closed, displaced POSTOPERATIVE DIAGNOSES: 1. Right trimalleolar ankle fracture, closed, displaced NAME OF OPERATION: 1. Right primary ankle fracture open reduction internal fixation, without fixation of posterior malleolus SURGEON: Norris Duval MD OPERATING ROOM ORDERLY: Jessica Baptiste P.A.-C.; An assistant front end manager was critical for this case to aid in patient positioning, leg manipulation, tissue retraction, wound closure, and splint application. ANESTHESIA: Spinal plus adductor canal and popliteal nerve blocks. EBL: 20 mL IMPLANTS: Distal fibula fixation: Arthrex 3.0 mm cortical interfragmentary compression screws x2, titanium distal fibular locking plate with unicortical 3.0 mm distal locking screws and 3.5 mm proximal locking and nonlocking screws. Medial malleolus fixation: Arthrex titanium medial hook plate with 4.0 mm partially-threaded cancellous screw and 3.5 mm locking and nonlocking screws. TOURNIQUET: 123 minutes at 250 mmHg INDICATIONS: The patient is a pleasant 59-year-old female who sustained a right ankle injury in the recent past with difficulty bearing weight. Workup included x-rays, which revealed an unstable trimalleolar ankle fracture. Given the unstable nature of this injury, surgery was recommended to improve alignment, stabilized the ankle, and allow for healing in a more anatomic position. Prior to surgery, the risks and benefits of the procedure were discussed with the patient, all questions were answered, and informed consent was obtained. FINDINGS: Closed, comminuted, displaced distal fibula fracture. Closed, displaced transverse distal medial malleolus fracture. Minimally displaced, small, posterior malleolus lip fracture. After open reduction internal fixation, all fractures were in anatomic alignment. PROCEDURE: Patient was seen preoperatively and operative site was marked. Regional nerve blocks were performed by anesthesia staff. The patient was then brought to the operating room and spinal anesthesia was administered. Patient was then placed supine persistent or table. Was given 2 g IV Ancef preoperatively for prophylaxis. A tourniquet placed the patient's right thigh. The right lower extremity then prepped and draped in usual sterile fashion. A surgical time-out was performed confirming patient identity, surgical site, and surgical procedure. The operative extremity was exsanguinated, and the tourniquet inflated to 250 mmHg. A longitudinal incision was made along the posterior border of the distal fibula. Incision was carried through the skin and subcutaneous tissues. The superficial peroneal nerve was identified and protected throughout the course of the procedure. Small traversing vessels were cauterized. Large vein distally was preserved. The fracture was encountered, and there were noted to be two separate, distinct oblique fracture lines, 1 exiting at the level of joint line and 1 exiting proximal to the joint line. The distal fracture was addressed 1st. Fracture was cleared of interposed periosteum and fracture hematoma. Fracture site was then thoroughly irrigated with normal saline. This fracture was reduced and temporarily held with a reduction clamp. A 3.0 mm interfragmentary lag screw was then drilled and placed perpendicular to this fracture line. Fluoroscopic images confirmed anatomic reduction of this fracture. Reduction clamp was removed and fracture was stable. The proximal fracture was then addressed. This fracture was cleared of interposed periosteum and fracture hematoma. Fracture was irrigated with normal saline. This fracture was then reduced and held with a reduction clamp. Another 3.0 mm interfragmentary lag screw was utilized and placed perpendicular to this fracture line. After screw was placed, this fracture was stable and in anatomic alignment. Following placement of the interfragmentary screws, and Arthrex distal fibular locking plate was selected and contoured to fit on the lateral border of the distal fibula. Plate was provisionally fixed with a K-wire and BB Tyler. Fluoroscopic imaging firm to correct placement of the plate. Plate was then fixed proximally with a 3.5 mm nonlocking screw. Plate was then fixed distally with multiple unicortical 3.0 mm locking screws. Fluoroscopic imaging confirmed correct position of these screws. Plate was then fixed proximally with 2 bicortical 3.5 mm locking screws. A unicortical 3.5 mm locking screw was placed into the middle fragment. Fluoroscopic images confirmed anatomic reduction of the distal fibula and satisfactory placement of the plate and screws. Attention was then directed to fixation of the medial malleolus fracture. A longitudinal incision was made overlying the medial malleolar fracture. Blunt dissection was utilized to dissect through the subcutaneous tissues with care taken to protect icing neurovascular structures. The fracture was identified and cleared of interposed periosteum and fracture hematoma. A small arthrotomy was performed to evaluate the articular surface. The fracture was reduced and held with a pointed reduction clamp. The fragment was felt to be too small to fix with 2 screws, so decision was made to fix the fragment with a medial malleolus with plate and a single 4.0 partially-threaded cancellous screw. Guide pin for the 4.0 mm cannulated screw was placed on the tip of the medial malleolus and advanced proximally under fluoroscopic guidance. Once the pin was in place, the hook plate was selected and contoured to fit the medial distal tibia. A plate was then placed around the guide pin and tamped into the tip of the medial malleolus. A 4.0 mm partially-threaded screw was then inserted over the guide pin, firmly securing the distal aspect of the plate to the tip of the medial malleolus. Plate was then fixed proximally with a bicortical 3.5 mm nonlocking screw. Reduction clamp was then removed. Plate was fixed with an additional bicortical nonlocking screw and a bicortical nonlocking screw. Fluoroscopic imaging was utilized in AP lateral planes, confirming anatomic reduction of the distal fibula, medial malleolus, and posterior malleolus fractures. One of the medial malleolus bicortical screws was long and was subsequently replaced with a slightly shorter screw. External rotation stress images were obtained which showed symmetric mortise with no widening of the syndesmosis or medial clear space. Surgical wounds were then thoroughly irrigated with normal saline. The tourniquet was released and hemostasis was achieved with electrocautery. Laterally, deep fascia was closed over the plate using 2-0 Vicryl [id number] interrupted sutures. Medially, the arthrotomy and deep fascia were closed with 0 Vicryl [id number] interrupted sutures. Skin incisions were then closed with 2-0 Vicryl inverted interrupted subcutaneous stitches followed running 2-0 Stratafix subcuticular stitches and Dermabond. Sterile dressings were applied and a well-padded short-leg splint was applied. The patient was awoken from anesthesia and transferred to the PACU in stable condition. PLAN: 1. Ice and elevation of operative extremity for pain and swelling. 2. Tylenol and oxycodone as needed for pain. 3. Toe-touch weight-bearing operative extremity x6 weeks. 4. Keep splint clean and dry. 5. Follow up in Orthopedic Clinic in 10-14 days for wound check and splint removal. 6. Will initiate formal physical therapy approximately 2 weeks postoperatively.
--- NOTE | 2025-03-14 08:01 | W.PM.H&PU ---
History & Physical Update History & Physical Update H&P Reviewed and patient assessed: No changes noted
[2025-03-14] MEDS: MIDAZOLAM HCL 1 MG/ML inj IVP (08:02)
--- NOTE | 2025-03-14 08:15 | CRLHL7_ITS ---
For Patients: As a result of the Cures Act, medical imaging exams and procedure reports are released immediately into your electronic medical record. You may view this report before your referring provider. If you have questions, please contact your health care provider. Indication: Right ankle ORIF Technique: Three fluoroscopic images right ankle. Fluoroscopic time 67.3 seconds. Comparison: 03/09/2025 IMPRESSION: Fluoroscopic guidance for open reduction internal fixation of distal tibial and distal fibular fractures. Dictated by Baltazar Bautista MD @ 03/16/2025 1:33:30 PM (Electronically Signed)
--- NOTE | 2025-03-14 08:36 | W.PM.NB ---
Nerve Block Nerve Block Time Seen by Provider: 08:05 Date Seen: 03/14/25 Type of block requested by surgeon for post-operative analgesia: popliteal Side: right Time out performed: Yes Verification of patient name: Yes Verification of date of : Yes Site marking: site marked Name of person performing procedure: Brady Muñiz Continuous monitoring Was continuous monitoring of O2 sat, B/P, nuclear monitoring technician, recorded every 15 minutes?: Yes Procedure Checklist: sterile prep, needles and gloves Ultrasound guided. Images saved: Yes Medications given in 5ml increments after negative aspiration: Ropivicaine %: 0.5 mL: 15 Needle gauge: 20 Patient tolerated procedure well: Yes Additional comments: Injected in 5 mL increments after negative aspiration Block Charges Block Charge (with Pro Fee): Sciatic Nerve Use of Ultrasound Machine for Block: Yes- US Guidance/pain block
--- NOTE | 2025-03-14 08:37 | W.PM.NB ---
Nerve Block Nerve Block Time Seen by Provider: 08:00 Date Seen: 03/14/25 Type of block requested by surgeon for post-operative analgesia: adductor canal Side: right Time out performed: Yes Verification of patient name: Yes Verification of date of : Yes Site marking: site marked Name of person performing procedure: Brady Muñiz Continuous monitoring Was continuous monitoring of O2 sat, B/P, cardiac care nurse, recorded every 15 minutes?: Yes Procedure Checklist: sterile prep, needles and gloves Ultrasound guided. Images saved: Yes Medications given in 5ml increments after negative aspiration: Ropivicaine %: 0.5 mL: 15 Needle gauge: 20 Precedex (mcg): 25 Patient tolerated procedure well: Yes Additional comments: Injected in 5mL increments after negative aspiration Block Charges Block Charge (with Pro Fee): Femoral Nerve Use of Ultrasound Machine for Block: Yes- US Guidance/pain block
--- NOTE | 2025-03-14 09:36 | SUR.OPER ---
PATIENT QUESTIONS ANSWERED SATISFACTORILY PREOPERATIVELY.? PATIENT BROUGHT TO OR #3 PER CART AFTER ADMINISTRATION OF A BLOCK.? Patient positioned supine on OR #3 bed.? The perioperative?team supported arms bilaterally on arm boards.? Final approval of positioning by surgeon.?
[2025-03-14] MEDS: LACTATED RINGERS 1000 ML 1,000 ML 125 ML IV (10:00)
--- NOTE | 2025-03-14 12:18 | P.ANES_ITS ---
Anesthesia Charges Start Date/Time Anesthesia Start Date: 03/14/25 Anesthesia Start Time: 08:33 Stop Date/Time Anesthesia Stop Date: 03/14/25 Anesthesia Stop Time: 12:12 Coding CPT Codes CPT Codes: ANESTH LOWER LEG BONE SURG - 33178 ([id number]) P2 - PATIENT W/MILD SYST DISEASE, QZ - MAPPING SPECIALIST SVC W/O PROFESSOR OF MATHEMATICS BY
--- NOTE | 2025-03-14 12:18 | W.ANESCHARGE ---
Anesthesia Charges Start Date/Time Anesthesia Start Date: 03/14/25 Anesthesia Start Time: 08:33 Stop Date/Time Anesthesia Stop Date: 03/14/25 Anesthesia Stop Time: 12:12 Coding CPT Codes CPT Codes: ANESTH LOWER LEG BONE SURG - 89690 ([id number]) P2 - PATIENT W/MILD SYST DISEASE, QZ - TUB WASHER SVC W/O CHIEF CATALYST OPERATOR BY
--- NOTE | 2025-03-14 13:49 | SUR.PHASEII ---
Upon entry to phase II after first set of vitals, patient up to commode and voided. Patient tolerated water, tea, and yogurt.
== END 2025-03-14 14:12 | disposition home or self-care (01) ==
LOC: OR 06:50
PROVIDERS: PCP Family Medicine; Visit Provider Orthopaedic Surgery
PROC: (CPT 27822; principal; 2025-03-14 08:15)
DX: S82.851A Displaced trimalleolar fracture of right lower leg, initial encounter for closed fracture (principal); G89.18 Other acute postprocedural pain
CPT/HCPCS: 27822; 01480; 64445; 64447; 73600; 76000; 76942; C1713; J0690; J1100; J2250; J2405; J2704; J2795; J3010; J7120